=== PATIENT | female | born 1995 | race Two or more races ===

== ENCOUNTER 2025-08-06 12:22 | Emergency (ER) | payer BC ==
[~2025-08-06] VITALS: Ht 170.2 cm; Wt 59.0 kg
[2025-08-06] MEDS ORDERED: LIDOCAINE 1% INJ 50 ML MDV IJ ONE (14:00)
[2025-08-06] MEDS ORDERED: BACI28.433 TP (14:23)
[2025-08-06] MEDS: TDAP [DIPH/PERTUSSIS/TET] 0.5 ML VIAL IM ONE (14:50)
[2025-08-06] MEDS: LIDOCAINE HCL/PF 1% 30 ML VIAL TP ONE (14:51)
[2025-08-06] MEDS: BACI/NEOM/POLY B OINT PKT 1 UDPKT PACKET TP ONE (14:51)
[2025-08-06] MEDS: LIDOCAINE 1% INJ 50 ML MDV IJ ONE (14:51)
[2025-08-06 14:56] VITALS: BP 116/58; TEMP 98.3; O2SAT 98
== END 2025-08-06 14:56 | disposition home or self-care (01) ==
LOC: ER 12:31
DX: S61.211A Laceration without foreign body of left index finger without damage to nail, initial encounter (principal); W26.8XXA Contact with other sharp object(s), not elsewhere classified, initial encounter; Y93.89 Activity, other specified; Y92.89 Other specified places as the place of occurrence of the external cause; Y99.8 Other external cause status
CPT/HCPCS: 12001; 99282; J3490